=== PATIENT | male | born 1935 | race Caucasian/White ===

== ENCOUNTER 2019-06-09 10:30 | Outpatient (RCR) | payer MEDICARE, OTHER, SELFPAY ==
[2019-06-01 15:44] VITALS: BP 104/63; PULSE 70; RESP 18; TEMP 36.9; BMI 23.6
--- NOTE | 2019-06-01 16:49 | HP.PCM_ITS ---
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 Patient has previously been evaluated for these injuries at a wound center in [place], where he primarily resides. However, he will be in [place] for the next few weeks and is seeking wound care during this time. He anticipates to return to [place] after the first of the year, though his return date to [place] is not yet determined. Patient reports that the abrasion to his left arm occurred in April 2019. He was on a stool while putting up his [employer] tree, when he fell and scraped his left arm. About 1 week later, he was sharpening a knife, and suffered a laceration to his right index finger. He presented to an emergency department in [place] the following day, but at that time his right index finger laceration could not be closed. It was left open and he was referred to the wound center in [place]. At the beginning of May, he was seen at [facility] by Dr. Christy. Silver nitrate was applied to the right index finger laceration while at the wound center. Following the use of silver nitrate, eschar was left behind, and patient was instructed to use iodine gel to his finger every other day. He keeps the wound covered with a Band-Aid. He did have a culture of his right index finger laceration while in [place], which was negative. The patient denies any fever, chills, nausea, vomiting, or diarrhea. Denies any signs of infection of his right index finger laceration, including increasing pain, redness, swelling, or drainage from affected area. While at [facility] wound center, his left arm laceration was also evaluated. No debridement was performed at the wound center, but he was given a topical ointment to apply to the abrasion daily. He is unsure of the name of this topical ointment, but reports it was to debride the wound. He continues to use the topical enzymatic debridement (?) daily, covering with a border dressing. He has avoided wetting/cleansing the area as instructed by the wound center. He denies any pain in his left arm at the site of the abrasion, but does report intense itching. Denies any signs of infection, including increasing pain, redness, swelling, or drainage from affected area of his left arm. Patient significant comorbidities include type 2 diabetes mellitus, congestive heart failure, A. fib with long-term use of anticoagulation, and history of skin cancer. He sees Dr. Arnaldo Salazar at [facility] in [place], [place] as his primary care provider. He reports he routinely has lab work done, and believes his last blood work was done ~April 2019. See [facility] for additional information. 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) Afib (Chronic) Allergies/Adverse Reactions: Allergies CHRISTOPH Inhibitors Allergy (Verified 06/01/19 15:41) Other amiodarone Allergy (Verified 06/01/19 15:41) Other amoxicillin Allergy (Verified 06/01/19 15:41) Other doxycycline Allergy (Verified 06/01/19 15:41) Other influenza A (H1N1) virus vaccine m-carlos-split 2008 [From influenza A (H1N1)] Allergy (Verified 06/01/19 15:41) Diarrhea metformin Allergy (Verified 06/01/19 15:41) Other sulfamethoxazole [From Bactrim] Allergy (Verified 06/01/19 15:41) Other trimethoprim [From Bactrim] Allergy (Verified 06/01/19 15:41) Other Home Medications: Ambulatory Orders Medication Instructions Recorded Atorvastatin Calcium [Lipitor] mg PO QHS 06/01/19 B12/Levomefolate Calcium/B-6 1 ea PO DAILY 06/01/19 [Folbic Rf Tablet] Cetirizine HCl [Zyrtec] 10 mg PO 06/01/19 Digoxin 125 mcg PO 06/01/19 Famotidine [Pepcid] mg PO DAILY 06/01/19 Iron Carbonyl [Feosol] 45 mg PO DAILYCM 06/01/19 Levothyroxine [Synthroid] mcg PO DAILY 06/01/19 Sacubitril/Valsartan 24/26 mg 1 ea PO DAILY 06/01/19 [Entresto 24 mg-26 mg Tablet] Sitagliptin Phosphate [Januvia] 50 mg PO DAILY 06/01/19 Sotalol HCl [Sotalol] mg PO 06/01/19 Tamsulosin HCl [Flomax] 0.4 mg PO DAILY 06/01/19 Torsemide [Demadex] 10 mg PO DAILY 06/01/19 Vit D3/Folic Acid/B2/B6/B12 1 ea PO DAILY 06/01/19 [Folgard Tablet] Warfarin [Coumadin ([facility])] 2 mg PO DAILY 06/01/19 Warfarin [Coumadin ([facility])] 4 mg PO QWEEK 06/01/19 Review of Systems Constitutional: Denies: Anorexia, Chills, Fever, Night Sweats, Malaise, Weight Change Cardiovascular: Reports: Edema - of BLE. Denies: Chest Pain, Palpitations Respiratory: Denies: Cough, Shortness of Breath, Wheezing Gastrointestinal: Denies: Abdominal Pain, Diarrhea, Nausea, Vomiting Musculoskeletal: Denies: Arm Pain, Hand Pain, Joint stiffness, Joint swelling, Joint Tenderness Skin: Reports: Pruritis, Wounds - Laceration of right index finger; abrasion of left arm Neurological: Denies: Numbness, Tingling Endocrine: Denies: Heat/ Cold Intolerance Hematologic/ Lymphatic: Reports: Easy Bruising - Long-term anticoagulant use due to A. fib - Physical Exam Vital Signs Temp Pulse Resp BP 98.5 F 70 18 104/63 06/01/19 15:44 06/01/19 15:44 06/01/19 15:44 06/01/19 15:44 General: Alert, Oriented x3, Cooperative, No apparent distress HEENT: Atraumatic, EOMI, Normocephalic Oral: Moist Mucosa Neck: Supple, No JVD, Trachea Midline Lungs: Clear to auscultation, Normal air movement, No rhonchi, No wheeze, No rales Cardiovascular: Irregular Rate - A. fib Abdomen: Bowel Sounds Present, Soft, Non Tender Extremities: No clubbing, No cyanosis, Capillary Refill Less than 3 Seconds, No Calf Tenderness, Diminished Peripheral Pulses - Of bilateral lower extremities; pulses of bilateral upper extremities normal., Edema - Of bilateral lower extremities, 2+ pitting. Skin: Ulcer/ Wound - No open wound on right index finger at site of laceration. Thick layer of eschar covers former wound. No joint tenderness on palpation, no swelling, no surrounding erythema, no drainage., Excoriated - Large area of excoriation on left arm, near elbow. Skin is intact, without any open wounds. There is scant serous drainage, odorless. No surrounding erythema, swelling, or warmth. No tenderness on palpation. Wound Measurements and Assessment WC - Nurse 1 - General Ulcer Measurement Start: 06/01/19 15:37 Freq: Status: Active Protocol: Activity Type Activity Date Activity User E-Sign Co-Sign Detail Recorded Client Recorded Date Recorded By Document 06/01/19 15:42 [id number] 06/01/19 15:44 06/01/19 15:42 Wound Center Nurse 1 [Ulcer Assessment] #2 LEFT ELBOW -Combined with other wound No -Current Size (cm) - Length 5.9 -Current Size (cm) - Width 6 -Current Size (cm) - Depth 0.1 -Total Square Cm 35.4 -Tunneling No -Undermining/Tunneling No -Circular Undermining No -Exudate Amt Small -Exudate Type Serosanguineous -Wound Margin Flat & Intact -Granulation Amt Large (67-100%) -Granulation Quality [place] -Slough/Fibrin Yes -Necrosis Amt Small (1-33%) -Necrotic Tissue Type Adherent Slough -Structure Exposed N/A -Texture (Cristin-wound Skin Appearance) Friable -Moisture (Cristin-wound Skin Appearance Assessed ) -Color (Cristin-wound Skin Appearance) Assessed -Temperature (Cristin-wound Skin No Abnormality Appearance) (Pt Warm) -Tenderness on Palpation (Cristin-wound No Skin Appearance) -Ulcer Cleansing Wound Cleanser -Foul Odor after Cleansing No -Anesthetic Used 4% Lidocaine Solution #1 RIGHT INDEX FINGER -Combined with other wound No -Current Size (cm) - Length 0.4 -Current Size (cm) - Width 1.2 -Current Size (cm) - Depth 0.1 -Total Square Cm 0.48 -Photo Taken Yes -Tunneling No -Undermining/Tunneling No -Circular Undermining No -Exudate Amt None Present -Wound Margin Flat & Intact -Granulation Amt None Present (0 %) -Necrosis Amt Large (67-100%) -Necrotic Tissue Type Eschar -Structure Exposed N/A -Texture (Cristin-wound Skin Appearance) Assessed -Moisture (Cristin-wound Skin Appearance Assessed ) -Color (Cristin-wound Skin Appearance) Assessed, Erythema -Temperature (Cristin-wound Skin No Abnormality Appearance) (Pt Warm) -Tenderness on Palpation (Cristin-wound No Skin Appearance) -Ulcer Cleansing Wound Cleanser -Foul Odor after Cleansing No -Anesthetic Used 5% Lidocaine Gel WC - Nurse 2 - General Ulcer CM Notes Start: 06/01/19 15:37 Freq: Status: Active Protocol: Activity Type Activity Date Activity User E-Sign Co-Sign Detail Recorded Client Recorded Date Recorded By Document 06/01/19 16:08 DV [id number] 06/01/19 16:21 DV 06/01/19 16:08 Wound Center Nurse 2 [Procedure/Treatment] #2 LEFT ELBOW -Time 16:09 -Correct Patient Yes -Correct Side, Site, Position Yes -Correct Procedure No -Procedure Performed No -Wound/Ulcer Outcome Not Healed -Ulcer Cleansing Rinsed/ Irrigated with Saline -Foul Odor after Cleansing No -Bioengineered Tissue No -Bleeding Controlled with NA #1 RIGHT INDEX FINGER -Time 16:09 -Correct Patient Yes -Correct Side, Site, Position Yes -Correct Procedure No -Procedure Performed No -Wound/Ulcer Outcome Not Healed -Bleeding Controlled with NA -Offloading No [See Physician Procedure note for Specifics] Pain Scale: 0-10 Numeric [Pain] -Is Patient Pain Free? Yes Musculoskeletal: No Tenderness to Palpation of Joints or Extremities Neurological: Neuro grossly intact Psych/Mental Status: Normal Affect, Appropriate Debridement Note Post-Debridement Measurements/Treatment WC - Nurse 2 - General Ulcer CM Notes Start: 06/01/19 15:37 Freq: Status: Active Protocol: Activity Type Activity Date Activity User E-Sign Co-Sign Detail Recorded Client Recorded Date Recorded By Document 06/01/19 16:08 DV [id number] 06/01/19 16:21 DV 06/01/19 16:08 Wound Center Nurse 2 #2 LEFT ELBOW -Time 16:09 -Correct Patient Yes -Correct Side, Site, Position Yes -Correct Procedure No -Procedure Performed No -Wound/Ulcer Outcome Not Healed -Ulcer Cleansing Rinsed/ Irrigated with Saline -Foul Odor after Cleansing No -Bioengineered Tissue No -Bleeding Controlled with NA #1 RIGHT INDEX FINGER -Time 16:09 -Correct Patient Yes -Correct Side, Site, Position Yes -Correct Procedure No -Procedure Performed No -Wound/Ulcer Outcome Not Healed -Bleeding Controlled with NA -Offloading No Pain Scale: 0-10 Numeric Is Patient Pain Free? 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 Adaptic applied to left arm abrasion/excoriation wound and covered with gauze and secured with Coban. Right index finger laceration was cleansed with Betadine solution and covered with a Band-Aid. At home wound-care instructions: Change dressing to left arm every day or every other day. Remove dressing before showering. While showering, you may wash around the affected area, and allow water to rinse over the affected area. Pat the area dry, and apply a new dressing of Adaptic touch, covered with gauze, and secured with Coban. Cleanse right index finger laceration with Betadine solution daily and may keep loosely covered with a Band-Aid. Off-loading: Avoid friction, tugging, or pulling at sites of wounds/injuries. Diet: Patient encouraged to increase protein and vitamin C intake while taking caution to avoid high carbohydrate and/or sugar intake. Labs/cultures/imaging: We will request lab results from patient's primary care provider. Per patient, his last A1c which was done ~April 2019 was 6.9%. No further labs, studies, or imaging ordered at this time. Follow- up: Return to clinic in 1 week for re-evaluation. Call the [facility] or return sooner if symptoms worsen, or if new symptoms arise. Note: [employer] speech recognition food or baggage handling rampman software was used to create portions of this document. Sound-alike and misspelled words, as well as other food or baggage handling rampman errors may be contained in the documentation.
[2019-06-09 10:43] VITALS: BP 99/52; PULSE 71; RESP 18; TEMP 37.2; BMI 23.6
--- NOTE | 2019-06-09 13:22 | PCM.WC.PN ---
(1) Abrasion of left arm Status: Acute Current Visit: Yes Qualifiers: Encounter type: subsequent encounter Qualified Code(s): S40.812D - Abrasion of left upper arm, subsequent encounter Code(s): S40.812A - Abrasion of left upper arm, initial encounter (2) Laceration of right index finger Status: Acute Current Visit: Yes Qualifiers: Encounter type: subsequent encounter Damage to nail status: without damage Foreign body presence: without foreign body Qualified Code(s): S61.210D - Laceration without foreign body of right index finger without damage to nail, subsequent encounter Code(s): S61.210A - Laceration without foreign body of right index finger without damage to nail, initial encounter (3) T2DM (type 2 diabetes mellitus) Status: Chronic Current Visit: Yes Code(s): E11.9 - Type 2 diabetes mellitus without complications (4) alf current use of anticoagulant Status: Chronic Current Visit: Yes Code(s): Z79.01 - watermelon harvesting supervisor (current) use of anticoagulants (5) Afib Status: Chronic Current Visit: Yes Code(s): I48.91 - Unspecified atrial fibrillation Type of Wound Date of Service: 06/09/19 Chief Complaint: Laceration of right index finger, abrasion of left arm History of Wound: Patient is a pleasant 84-year-old male who presents to the [facility] 06/01/2019 for evaluation of right index finger laceration and left arm abrasion. Patient has previously been evaluated for these injuries at a wound center in [place], where he primarily resides. However, he will be in [place] for the next few weeks and is seeking wound care during this time. He anticipates to return to [place] after the first of the year, though his return date to [place] is not yet determined. Patient reports that the abrasion to his left arm occurred in April 2019. He was on a stool while putting up his [place] tree, when he fell and scraped his left arm. About 1 week later, he was sharpening a knife, and suffered a laceration to his right index finger. He presented to an emergency department in [place] the following day, but at that time his right index finger laceration could not be closed. It was left open and he was referred to the wound center in [place]. At the beginning of May, he was seen at [facility] by Dr. Christy. Silver nitrate was applied to the right index finger laceration while at the wound center. Following the use of silver nitrate, eschar was left behind, and patient was instructed to use iodine gel to his finger every other day. He keeps the wound covered with a Band-Aid. He did have a culture of his right index finger laceration while in [place], which was negative. The patient denies any fever, chills, nausea, vomiting, or diarrhea. Denies any signs of infection of his right index finger laceration, including increasing pain, redness, swelling, or drainage from affected area. While at [facility] wound center, his left arm laceration was also evaluated. No debridement was performed at the wound center, but he was given a topical ointment to apply to the abrasion daily. He is unsure of the name of this topical ointment, but reports it was to debride the wound. He continues to use the topical enzymatic debridement (?) daily, covering with a border dressing. He has avoided wetting/cleansing the area as instructed by the wound center. He denies any pain in his left arm at the site of the abrasion, but does report intense itching. Denies any signs of infection, including increasing pain, redness, swelling, or drainage from affected area of his left arm. Patient significant comorbidities include type 2 diabetes mellitus, congestive heart failure, A. fib with long-term use of anticoagulation, and history of skin cancer. He sees Dr. Arnaldo Salazar at [facility] in [place], [place] as his primary care provider. He reports he routinely has lab work done, and believes his last blood work was done ~April 2019. See [facility] for additional information. Progress of Wound: Right index finger laceration stable. Left arm abrasion greatly improved over the last week. Patient has been compliant with use of Betadine to right index finger daily. Patient has also been compliant with use of Adaptic to left arm excoriation/abrasion daily. The patient denies any fever, chills, nausea, vomiting, or diarrhea. Denies any signs of infection, including increasing pain, redness, swelling, or drainage from affected area. - Physical Exam Vital Signs Temp Pulse Resp BP 98.9 F 71 18 99/52 L 06/09/19 10:43 06/09/19 10:43 06/09/19 10:43 06/09/19 10:43 General: Alert, Oriented x3, Cooperative, No apparent distress HEENT: Atraumatic, EOMI, Normocephalic Extremities: No clubbing, No cyanosis, No edema, Capillary Refill Less than 3 Seconds, Edema - Bilateral lower extremity edema, 2+ pitting, Peripheral Pulses Normal - Of bilateral upper extremities Skin: Ulcer/ Wound - Stable eschar present over right index finger laceration. No erythema, swelling, drainage, or warmth or tenderness to palpation of right index finger. Excoriation of left arm greatly improved. Erythema has greatly decreased. No swelling, no warmth or tenderness to palpation, no purulent drainage. Small ulceration with scant bleeding present. See nursing documentation Wound Measurements and Assessment WC - Nurse 1 - General Ulcer Measurement Start: 06/01/19 15:37 Freq: Status: Active Protocol: Activity Type Activity Date Activity User E-Sign Co-Sign Detail Recorded Client Recorded Date Recorded By Document 06/09/19 10:43 [id number] 06/09/19 10:50 BS 06/09/19 10:43 Wound Center Nurse 1 [Ulcer Assessment] #2 LEFT ELBOW -Combined with other wound No -Current Size (cm) - Length 1 -Current Size (cm) - Width 1 -Current Size (cm) - Depth 0.1 -Total Square Cm 1 -Texture (Cristin-wound Skin Appearance) Assessed, Scarring -Moisture (Cristin-wound Skin Appearance Assessed,Dry/ ) Scaly -Color (Cristin-wound Skin Appearance) Assessed, Hemosiderin Staining -Temperature (Cristin-wound Skin No Abnormality Appearance) (Pt Warm) -Tenderness on Palpation (Cristin-wound No Skin Appearance) -Ulcer Cleansing Rinsed/ Irrigated with Saline -Foul Odor after Cleansing No -Anesthetic Used 5% Lidocaine Gel #1 RIGHT INDEX FINGER -Combined with other wound No -Current Size (cm) - Length 0.5 -Current Size (cm) - Width 1.2 -Current Size (cm) - Depth 0.1 -Total Square Cm 0.60 -Moisture (Cristin-wound Skin Appearance Assessed,Dry/ ) Scaly -Temperature (Cristin-wound Skin No Abnormality Appearance) (Pt Warm) -Tenderness on Palpation (Cristin-wound No Skin Appearance) -Ulcer Cleansing Rinsed/ Irrigated with Saline -Foul Odor after Cleansing No -Anesthetic Used 5% Lidocaine Gel [place] - Nurse 2 - General Ulcer CM Notes Start: 06/01/19 15:37 Freq: Status: Active Protocol: Activity Type Activity Date Activity User E-Sign Co-Sign Detail Recorded Client Recorded Date Recorded By Document 06/09/19 11:19 [id number] 06/09/19 11:20 06/09/19 11:19 Wound Center Nurse 2 [Procedure/Treatment] #2 LEFT ELBOW -Time 11:19 -Correct Patient Yes -Correct Side, Site, Position Yes -Correct Procedure Yes -Procedure Performed Yes -Type of Procedure Debridement -Clinical Debridement Subcutaneous -Post Debridement Size (cm) - Length 0.4 -Post Debridement Size (cm) - Width 0.5 -Post Debridement Size (cm) - Depth 0.1 -Total Square Cm 0.20 -Wound/Ulcer Outcome Not Healed -Ulcer Cleansing Rinsed/ Irrigated with Saline -Foul Odor after Cleansing No -Bioengineered Tissue No -Bleeding Controlled with Pressure -Offloading No -Treatment Response Procedure Tolerated Well #1 RIGHT INDEX FINGER -Correct Patient No -Correct Side, Site, Position No -Correct Procedure No -Procedure Performed No -Wound/Ulcer Outcome Not Healed [See Physician Procedure note for Specifics] Pain Scale: 0-10 Numeric [Pain] -Is Patient Pain Free? Yes Psych/Mental Status: Normal Affect, Appropriate Debridement Note Post-Debridement Measurements/Treatment - Nurse 2 - General Ulcer CM Notes Start: 06/01/19 15:37 Freq: Status: Active Protocol: Activity Type Activity Date Activity User E-Sign Co-Sign Detail Recorded Client Recorded Date Recorded By Document 06/01/19 16:08 [id number] 06/01/19 16:21 DV Document 06/09/19 11:19 [id number] 06/09/19 11:20 06/01/19 06/09/19 16:08 11:19 Wound Center Nurse 2 #2 LEFT ELBOW -Time 16:09 11:19 -Correct Patient Yes Yes -Correct Side, Site, Position Yes Yes -Correct Procedure No Yes -Procedure Performed No Yes -Type of Procedure Debridement -Clinical Debridement Subcutaneous -Post Debridement Size (cm) - Length 0.4 -Post Debridement Size (cm) - Width 0.5 -Post Debridement Size (cm) - Depth 0.1 -Total Square Cm 0.20 -Wound/Ulcer Outcome Not Healed Not Healed -Ulcer Cleansing Rinsed/ Rinsed/ Irrigated with Irrigated with Saline Saline -Foul Odor after Cleansing No No -Bioengineered Tissue No No -Bleeding Controlled with NA Pressure -Offloading No -Treatment Response Procedure Tolerated Well #1 RIGHT INDEX FINGER -Time 16:09 -Correct Patient Yes No -Correct Side, Site, Position Yes No -Correct Procedure No No -Procedure Performed No No -Wound/Ulcer Outcome Not Healed Not Healed -Bleeding Controlled with NA -Offloading No Pain Scale: 0-10 Numeric Is Patient Pain Free? Yes Yes Wound debrided: Left arm ulceration Laterality: Left Type of Debridement: Excisional debridement Anesthesia Used: 5% Lidocaine Gel Depth: in the subcutaneous layer Percentage of wound debrided: 100 Instrument Used: 3mm curette Severity: Fat Layer Exposed Amount of bleeding with debridement: Mild Bleeding Controlled with: Compression and gauze Patient tolerated procedure well Assessment/Plan Active Problems Abrasion of left arm (Acute) Laceration of right index finger (Acute) T2DM (type 2 diabetes mellitus) (Chronic) alf current use of anticoagulant (Chronic) Afib (Chronic) Assessment: See above diagnoses Plan: Debridement performed on left arm ulcer today in clinic. Adaptic applied to left arm ulcer and abrasion/excoriation and covered with gauze and secured. Right index finger laceration was cleansed with Betadine solution and covered with a Band-Aid. At home wound-care instructions: Change dressing to left arm every day or every other day. Remove dressing before showering. While showering, you may wash around the affected area, and allow water to rinse over the affected area. Pat the area dry, and apply a new dressing of Adaptic touch, covered with gauze, and secure. Cleanse right index finger laceration with Betadine solution daily and may keep loosely covered with a Band-Aid. Off-loading: Avoid friction, tugging, or pulling at sites of wounds/injuries. Diet: Patient encouraged to increase protein and vitamin C intake while taking caution to avoid high carbohydrate and/or sugar intake. Labs/cultures/imaging: We will request lab results from patient's primary care provider. Per patient, his last A1c which was done ~April 2019 was 6.9%. No further labs, studies, or imaging ordered at this time. Follow-up: Return to clinic in 1 week for re-evaluation. Call the Wound Healing Center or return sooner if symptoms worsen, or if new symptoms arise. Note: [employer] speech recognition lead embedded software engineer software was used to create portions of this document. Sound-alike and misspelled words, as well as other lead embedded software engineer errors may be contained in the documentation. Code Visit 111xxx-113xx: [id number] Angelika subq tissue 20 sq cm/<
== END 2019-06-13 23:59 ==
LOC: WC 10:30
PROVIDERS: Visit Provider Nurse Practitioner Family
DX: S40.812A Abrasion of left upper arm, initial encounter (principal); S61.210A Laceration without foreign body of right index finger without damage to nail, initial encounter; W19.XXXA Unspecified fall, initial encounter; Y93.89 Activity, other specified; W26.0XXA Contact with knife, initial encounter; E11.9 Type 2 diabetes mellitus without complications; I48.20 Chronic atrial fibrillation, unspecified; Z79.01 Long term (current) use of anticoagulants; I50.9 Heart failure, unspecified
CPT/HCPCS: 11042; 99213; G0463

== ENCOUNTER 2019-06-15 14:34 | Outpatient (RCR) | payer MEDICARE, OTHER, SELFPAY ==
[2019-06-14 01:08] VITALS: BP 99/52; PULSE 71; RESP 18; TEMP 37.2
[2019-06-15 15:32] VITALS: BP 94/50; PULSE 71; RESP 16; TEMP 36.4; BMI 23.6
--- NOTE | 2019-06-15 17:09 | PN.PCM_ITS ---
(1) Abrasion of left arm Status: Resolved Current Visit: Yes Qualifiers: Encounter type: subsequent encounter Qualified Code(s): S40.812D - Abrasion of left upper arm, subsequent encounter Code(s): S40.812A - Abrasion of left upper arm, initial encounter (2) Laceration of right index finger Status: Resolved Current Visit: Yes Qualifiers: Encounter type: subsequent encounter Damage to nail status: without damage Foreign body presence: without foreign body Qualified Code(s): S61.210D - Laceration without foreign body of right index finger without damage to nail, subsequent encounter Code(s): S61.210A - Laceration without foreign body of right index finger without damage to nail, initial encounter (3) Afib Status: Chronic Current Visit: No Code(s): I48.91 - Unspecified atrial fibrillation (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 06/01/2019 for evaluation of right index finger laceration and left arm abrasion. Patient has previously been evaluated for these injuries at a wound center in [place], where he primarily resides. However, he will be in [place] for the next few weeks and is seeking wound care during this time. He anticipates to return to [place] after the first of the year, though his return date to [place] is not yet determined. Patient reports that the abrasion to his left arm occurred in April 2019. He was on a stool while putting up his [place] tree, when he fell and scraped his left arm. About 1 week later, he was sharpening a knife, and suffered a laceration to his right index finger. He presented to an emergency department in [place] the following day, but at that time his right index finger laceration could not be closed. It was left open and he was referred to the wound center in [place]. At the beginning of May, he was seen at [facility] by Dr. Christy. Silver nitrate was applied to the right index finger laceration while at the wound center. Following the use of silver nitrate, eschar was left behind, and patient was instructed to use iodine gel to his finger every other day. He keeps the wound covered with a Band-Aid. He did have a culture of his right index finger laceration while in [place], which was negative. The patient denies any fever, chills, nausea, vomiting, or diarrhea. Denies any signs of infection of his right index finger laceration, including increasing pain, redness, swelling, or drainage from affected area. While at [facility] wound center, his left arm laceration was also evaluated. No debridement was performed at the wound center, but he was given a topical ointment to apply to the abrasion daily. He is unsure of the name of this topical ointment, but reports it was to debride the wound. He continues to use the topical enzymatic debridement (?) daily, covering with a border dressing. He has avoided wetting/cleansing the area as instructed by the wound center. He denies any pain in his left arm at the site of the abrasion, but does report intense itching. Denies any signs of infection, including increasing pain, redness, swelling, or drainage from affected area of his left arm. Patient significant comorbidities include type 2 diabetes mellitus, congestive heart failure, A. fib with long-term use of anticoagulation, and history of skin cancer. He sees Dr. Arnaldo Salazar at [facility] in [place], [place] as his primary care provider. He reports he routinely has lab work done, and believes his last blood work was done ~April 2019. See [facility] for additional information. Progress of Wound: Right index finger laceration healed. Patient reports eschar spontaneously came off in the last week. He denies any bleeding or drainage from R index finger. Left arm abrasion healed. - Physical Exam Vital Signs Temp Pulse Resp BP 97.5 F L 71 16 94/50 L 06/15/19 15:32 06/15/19 15:32 06/15/19 15:32 06/15/19 15:32 General: Alert, Oriented x3, Cooperative, No apparent distress HEENT: Atraumatic, EOMI, Normocephalic Oral: Moist Mucosa Neck: Supple, Trachea Midline Extremities: No clubbing, No cyanosis, No edema, Capillary Refill Less than 3 Seconds Skin: Ulcer/ Wound - Right index finger laceration healed., Excoriated - Left arm excoriation/abrasion healed. Wound Measurements and Assessment WC - Nurse 1 - General Ulcer Measurement Start: 06/15/19 15:32 Freq: Status: Active Protocol: Activity Type Activity Date Activity User E-Sign Co-Sign Detail Recorded Client Recorded Date Recorded By Document 06/15/19 15:32 [facility] [id number] 06/15/19 15:40 [facility] 06/15/19 15:32 Wound Center Nurse 1 [Ulcer Assessment] #2 LEFT ELBOW -Combined with other wound No -Current Size (cm) - Length 0.1 -Current Size (cm) - Width 0.1 -Current Size (cm) - Depth 0.1 -Total Square Cm 0.01 -Epithelialization Large 67-100% -Tunneling No -Undermining/Tunneling No -Circular Undermining No -Exudate Amt None Present -Texture (Cristin-wound Skin Appearance) Assessed, Scarring -Moisture (Cristin-wound Skin Appearance Assessed,Dry/ ) Scaly -Color (Cristin-wound Skin Appearance) Assessed -Temperature (Cristin-wound Skin No Abnormality Appearance) (Pt Warm) -Tenderness on Palpation (Cristin-wound No Skin Appearance) #1 RIGHT INDEX FINGER -Combined with other wound No -Current Size (cm) - Length 0.1 -Current Size (cm) - Width 0.1 -Current Size (cm) - Depth 0.1 -Total Square Cm 0.01 -Photo Taken No -Epithelialization Large 67-100% -Tunneling No -Undermining/Tunneling No -Circular Undermining No -Exudate Amt None Present -Granulation Amt Small (1-33%) -Granulation Quality [place] -Texture (Cristin-wound Skin Appearance) Assessed, Scarring -Moisture (Cristin-wound Skin Appearance Assessed ) -Color (Cristin-wound Skin Appearance) Assessed -Temperature (Cristin-wound Skin No Abnormality Appearance) (Pt Warm) -Tenderness on Palpation (Cristin-wound No Skin Appearance) -Ulcer Cleansing Rinsed/ Irrigated with Saline -Foul Odor after Cleansing No -Anesthetic Used 5% Lidocaine Gel WC - Nurse 2 - General Ulcer CM Notes Start: 06/15/19 15:32 Freq: Status: Active Protocol: Activity Type Activity Date Activity User E-Sign Co-Sign Detail Recorded Client Recorded Date Recorded By Document 06/15/19 16:40 DV [id number] 06/15/19 16:42 DV 06/15/19 16:40 Wound Center Nurse 2 [Procedure/Treatment] #2 LEFT ELBOW -Time 16:41 -Correct Patient Yes -Correct Side, Site, Position Yes -Correct Procedure No -Procedure Performed No -Post Debridement Size (cm) - Length 0 -Post Debridement Size (cm) - Width 0 -Post Debridement Size (cm) - Depth 0 -Total Square Cm 0 -Wound/Ulcer Outcome Healed- Epithelialized #1 RIGHT INDEX FINGER -Time 16:41 -Correct Patient Yes -Correct Side, Site, Position Yes -Correct Procedure No -Procedure Performed No -Post Debridement Size (cm) - Length 0 -Post Debridement Size (cm) - Width 0 -Post Debridement Size (cm) - Depth 0 -Total Square Cm 0 -Wound/Ulcer Outcome Healed- Epithelialized [See Physician Procedure note for Specifics] Pain Scale: 0-10 Numeric [Pain] -Is Patient Pain Free? Yes Musculoskeletal: No Tenderness to Palpation of Joints or Extremities Neurological: Neuro grossly intact Psych/Mental Status: Normal Affect, Appropriate Debridement Note Post-Debridement Measurements/Treatment WC - Nurse 2 - General Ulcer CM Notes Start: 06/15/19 15:32 Freq: Status: Active Protocol: Activity Type Activity Date Activity User E-Sign Co-Sign Detail Recorded Client Recorded Date Recorded By Document 06/15/19 16:40 DV [id number] 06/15/19 16:42 DV 06/15/19 16:40 Wound Center Nurse 2 #2 LEFT ELBOW -Time 16:41 -Correct Patient Yes -Correct Side, Site, Position Yes -Correct Procedure No -Procedure Performed No -Post Debridement Size (cm) - Length 0 -Post Debridement Size (cm) - Width 0 -Post Debridement Size (cm) - Depth 0 -Total Square Cm 0 -Wound/Ulcer Outcome Healed- Epithelialized #1 RIGHT INDEX FINGER -Time 16:41 -Correct Patient Yes -Correct Side, Site, Position Yes -Correct Procedure No -Procedure Performed No -Post Debridement Size (cm) - Length 0 -Post Debridement Size (cm) - Width 0 -Post Debridement Size (cm) - Depth 0 -Total Square Cm 0 -Wound/Ulcer Outcome Healed- Epithelialized Pain Scale: 0-10 Numeric Is Patient Pain Free? Yes Assessment/Plan Assessment: Left arm abrasion healed today 06/15/2019. Right index finger laceration healed today 06/15/2019 Plan: Both the right index finger laceration and left arm abrasion are healed today. Recommend keeping affected area of left arm covered with Adaptic to help protect fragile skin for the next week, after which no further dressings or coverings are necessary. At this time, patient is discharged from the Wound Healing Center. If at anytime new wounds develop, patient is encouraged to return to a wound healing center for further evaluation and treatment. Note: [employer] speech recognition beverage steward software was used to create portions of this document. Sound-alike and misspelled words, as well as other beverage steward errors may be contained in the documentation. Code Visit Office Visits / Consults: [id number] OV L3 Est
== END 2019-07-14 23:59 ==
LOC: WC 14:34
PROVIDERS: Visit Provider Nurse Practitioner Family
DX: Z09 Encounter for follow-up examination after completed treatment for conditions other than malignant neoplasm (principal); E11.9 Type 2 diabetes mellitus without complications; I50.9 Heart failure, unspecified; I48.91 Unspecified atrial fibrillation; Z79.01 Long term (current) use of anticoagulants
CPT/HCPCS: 99212; G0463